=== PATIENT | female | born 1935 | race Caucasian/White ===

== ENCOUNTER → 2016-08-18 | Outpatient (CLI) | payer OTHER ==
[~2016-08-18] MED LIST: BAYER ASPIRIN325 M1 PO; CALCIUM + D 6001 TA1 PO; CALCIUM 600+D1 EACH PO; CLARITIN10 M3 PO; DISCONTINUED MED; FAMOTIDINE PO; GINKGO60 MG PO; HYDROCHLOROTHIA25 MG PO; IRON18 MG PO; IRON325 MG PO; LISINOPRIL20 MG PO; PRAVASTATIN SOD20 MG PO; TERBINAFINE (L250 MG PO; TRAMADOL HCL50 M1 PO; ZESTRIL40 MG PO; ZOCOR; [UNRECOGNIZED DRUG - REMARK]
--- NOTE | ~2016-08-18 | CT55 ---
[facility] A Service of [facility] RADIOLOGY TEXT RESULTS PATIENT: KARYN MILAN LOCATION: [facility] : 34 UNIT #: [id number] AGE: [address]: Garett Denis MD SEX: F ORDER DR: [id number] [facility] [address] [place], [place] [address] [id number] O MR#: [id number] Acc #: [id number] NAME: KARYN MILAN : 1935 SEX: F STUDY DATE/TIME: 08/18/2016 15:59 UNIT: [facility] ROOM: STUDY DESCRIPTION: CT Chest W Con Attending Physician: Garett Denis M.D. Referring Physician: Garett Denis M.D. Ordering Physician: Garett Denis M.D. Primary Care Physician: Garett Denis M.D. MEDICAL IMAGING REPORT This report is preliminary unless electronic signature is present EXAM CT chest with contrast INDICATIONS Unexplained 40 pounds weight loss over the past year. Observation for malignancy. PROCEDURE Contrast-enhanced CT of the chest. 100 mL of Isovue-370. The CT exam was performed with one or more of the following radiation dose reduction techniques: automatic exposure control, adjustment of mA and/or kV according to patient size, and iterative reconstruction. COMPARISON 02/25/2008 FINDINGS 5-mm ground-glass nodule inferior right upper lobe. No dense consolidation, pleural fluid or pneumothorax. No adenopathy. No aggressive appearing bone lesion. Refer to separately dictated abdomen and pelvis CT for findings below the diaphragm. The 5-mm inferior right upper lobe ground-glass nodule is unchanged from 2007 in keeping with benign finding. IMPRESSION 5-mm ground-glass nodule in the right upper lobe is stable since 2079 in keeping with a benign finding. There is no convincing evidence [facility] Service of [facility] RADIOLOGY TEXT RESULTS PATIENT: KARYN MILAN LOCATION: [facility] : 34 UNIT #: [id number] AGE: [address]: Garett Denis MD SEX: F ORDER DR: malignancy in the chest. No acute findings. Dictated by... Anthony Amin M.D. THIS IS AN ELECTRONICALLY VERIFIED REPORT Anthony Amin M.D. at 08/19/2016 3:55 PM SEJAL/david TD: 08/19/2016 07:47 JOB #: [id number] MEDICAL IMAGING REPORT Page 1 of 1 COPY
--- NOTE | ~2016-08-18 | CT2 ---
[facility] A Service of [facility] & [facility] RADIOLOGY TEXT RESULTS PATIENT: KARYN MILAN LOCATION: [facility] : 34 UNIT #: [id number] AGE: [address]: Garett Denis MD SEX: F ORDER DR: [id number] [facility] [address] [place], [place] [address] [id number] O MR#: [id number] Acc #: [id number] NAME: KARYN MILAN : 1935 SEX: F STUDY DATE/TIME: 08/18/2016 15:59 UNIT: [facility] ROOM: STUDY DESCRIPTION: CT Abd and Pelv W Cont Attending Physician: Garett Denis M.D. Referring Physician: Garett Denis M.D. Ordering Physician: Garett Denis M.D. Primary Care Physician: Garett Denis M.D. MEDICAL IMAGING REPORT This report is preliminary unless electronic signature is present EXAM CT abdomen and pelvis with contrast INDICATION Unexplained weight loss of 40 pounds over the past year. Intermittent constipation and generalized abdominal pain. PROCEDURE Contrast-enhanced CT of the abdomen and pelvis. 100 mL of Isovue-370. This CT examination was performed with one or more of the following radiation dose reduction techniques: automatic exposure control, adjustment of mA and/or kV according to patient size, and iterative reconstruction. COMPARISON 01/22/2015. FINDINGS Refer to the separately dictated chest CT for thoracic findings. The liver, spleen, kidneys, adrenal glands, pancreas show no acute abnormality. Previous cholecystectomy. There is a 1.8 cm right renal cyst. Large hiatal hernia with the majority of the stomach above the diaphragm. This is similar to the previous study. Uncomplicated sigmoid diverticula. Moderate colonic stool burden. Appendix is normal. There is a 1.8 cm fat-containing supraumbilical hernia. PELVIS WITH CONTRAST: Previous hysterectomy. No pelvic mass. No abdominal or pelvic adenopathy. There is heavy atherosclerotic calcification of the abdominal aorta including at the origins of the celiac, superior mesenteric and left renal arteries. These arteries remain patent. STS. [facility] A Service of [facility] & [facility] RADIOLOGY TEXT RESULTS PATIENT: KARYN MILAN LOCATION: [facility] : 34 UNIT #: [id number] AGE: [address]: Garett Denis MD SEX: F ORDER DR: There is significant increasing mixed sclerosis and lucency in the L5 vertebral body with a fairly large associated paravertebral soft tissue mass, greater in the left paravertebral soft tissues, where it measures up to approximately 2 cm in thickness. No other aggressive appearing bone lesion is seen. IMPRESSION 1. Abnormal appearance of the L5 vertebral body with abnormal paravertebral soft tissue, as detailed above. Malignant process is favored. Considerations include metastatic disease possibly lymphoma. Infectious or inflammatory process is a consideration but considered less likely. Lumbar spine MRI may allow further characterization. This process should be amendable to ultrasound-guided biopsy, if desired clinically. 2. No acute findings are seen in the abdomen or pelvis and there is no obvious primary malignancy elsewhere in the abdomen or pelvis. Dictated by... Anthony Amin M.D. THIS IS AN ELECTRONICALLY VERIFIED REPORT Anthony Amin M.D. at 08/19/2016 3:55 PM SEJAL/morris TD: 08/19/2016 08:46 JOB #: [id number] MEDICAL IMAGING REPORT Page 1 of 1 COPY
[2016-08-18 16:16] LABS: POC - CREATININE 0.88 mg/dL (0.44-1.03); POC - GFR >60.0 mL/min (>60)
== END | disposition home or self-care (01) ==
LOC: CCAT 13:23
PROVIDERS: Family Medicine
DX: R63.4 Abnormal weight loss (principal); R91.1 Solitary pulmonary nodule; R90.89 Other abnormal findings on diagnostic imaging of central nervous system
CPT/HCPCS: 71260; 74177; 82565; Q9967

== ENCOUNTER → 2016-08-22 | Outpatient (CLI) | payer OTHER ==
--- NOTE | ~2016-08-22 | MR112 ---
[facility] A Service of [facility] & [facility] RADIOLOGY TEXT RESULTS PATIENT: KARYN MILAN LOCATION: [facility] : 34 UNIT #: [id number] AGE: [address]: Garett Denis MD SEX: F ORDER DR: [id number] [facility] [address] [place], [place] [address] [id number] O MR#: [id number] Acc #: [id number] NAME: KARYN MILAN : 1935 SEX: F STUDY DATE/TIME: 08/22/2016 9:26 UNIT: [facility] ROOM: STUDY DESCRIPTION: MR Lumbar WWo Contrast Attending Physician: Garett Denis M.D. Ordering Physician: Garett Denis M.D. Primary Care Physician: Garett Denis M.D. MRI CENTER REPORT This report is preliminary unless electronic signature is present. EXAM Lumbar spine MRI with and without contrast. CLINICAL HISTORY Low back pain for 5 years worsening in severity. Difficulty walking due to back pain. Recent abnormal CT scan demonstrating a lytic process at L5. FINDINGS There is a grade I 4-5 anterolisthesis. Alignment is otherwise normal. 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 Signal extending into the pedicles bilaterally. There is also anterior epidural soft tissue, again circumferential paravertebral soft tissue, left side predominant, extending outside the vertebral body. No abnormal signal was seen at any other level and the distal cord and conus are normal in position and appearance. Postcontrast images shows strong enhancement throughout the vertebral body and adjacent soft tissue. No other areas of abnormal enhancement are seen. While there are modest degenerative changes at 1-2, 2-3, and 3-4; none show substantial canal or foraminal compromise. At 4-5, due to anterolisthesis and degenerative change, there is winrvusj-ae-ahjapo canal stenosis somewhat exacerbated by a malignant process as well, with mild right and moderate or agnhkqdm-mt-oovzsi left foraminal stenosis again primarily on a degenerative basis though probably exacerbated slightly by the malignant process. Behind the L5 vertebral body, there is at least moderate thecal sac stenosis due to extensive soft tissue. There is effective severe bilateral 5-1 foraminal stenosis. IMPRESSION [facility]. [facility] A Service of [facility] RADIOLOGY TEXT RESULTS PATIENT: KARYN MILAN LOCATION: [facility] : 34 UNIT #: [id number] AGE: [address]: Garett Denis MD SEX: F ORDER DR: 1. 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 Findings suggest metastatic disease. Primary bony tumor is less likely. Tissue sampling could be easily accomplished, but a bone scan and metastatic workup may be prudent prior to attempting tissue diagnosis at this level in case other areas of involvement are identified. 2. 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 See above for additional details. No other areas of involvement are seen here. Dictated by... Garrett Perez M.D. THIS IS AN ELECTRONICALLY VERIFIED REPORT Garrett Perez M.D. at 08/25/2016 10:31 AM SAM/pastora TD: 08/23/2016 14:16 JOB #: [id number] MRI CENTER REPORT Page 1 of 1 COPY
== END | disposition home or self-care (01) ==
LOC: CMRI 08:19
DX: R22.2 Localized swelling, mass and lump, trunk (principal); C70.1 Malignant neoplasm of spinal meninges; C49.6 Malignant neoplasm of connective and soft tissue of trunk, unspecified; M48.06 Spinal stenosis, lumbar region
CPT/HCPCS: 72158; A9577

== ENCOUNTER → 2016-08-29 | Outpatient (CLI) | payer OTHER ==
--- NOTE | ~2016-08-29 | NM8 ---
[facility] A Service of [facility] & [facility] RADIOLOGY TEXT RESULTS PATIENT: KARYN MILAN LOCATION: [facility] : 34 UNIT #: [id number] AGE: [address]: Garett Denis MD SEX: F ORDER DR: [id number] [place] [id number] [facility]. [place], [place] [address] [id number] O MR#: [id number] Acc #: [id number] NAME: KARYN MILAN. : 1935 SEX: F STUDY DATE/TIME: 08/29/2016 11:29 UNIT: [facility] ROOM: STUDY DESCRIPTION: VT Bone or Joint Whole Body Attending Physician: Garett Denis M.D. Referring Physician: Garett Denis M.D. Ordering Physician: Garett Denis M.D. Primary Care Physician: Garett Denis M.D. MEDICAL IMAGING REPORT This report is preliminary unless electronic signature is present EXAM Whole body bone scan HISTORY 81-year-old female low back pain, unintended weight loss, bilateral arm pain. History of bilateral knee replacements, right foot surgery. COMPARISON MRI of the lumbar spine 08/22/2016. CT abdomen and pelvis 08/18/2016. FINDINGS Whole-body and selected spot images was performed of the axial and appendicular skeleton following the intravenous administration of 28 mCi technetium 99m MDP. The examination demonstrates increased uptake in the lower lumbar spine most pronounced at L5 which corresponds to the abnormality noted on the patient's recent MRI of 08/22/2016. Findings concerning for metastatic disease or less likely a primary neoplasm. There is a sizeable extravertebral component to the lesion at L5 which again favors underlying neoplasm. Degenerative uptake seen within the feet bilaterally as well as increased uptake in the right sternoclavicular joint most likely degenerative as well as mild increased uptake in both shoulders which is felt to be degenerative in nature. No long bone activity, rib or skull activity is identified to suggest osseous metastatic disease. Normal bilateral renal activity and bladder activity identified. Degenerative uptake is also within the hands and wrists. IMPRESSION 1. Increased uptake within the lower lumbar spine at the L5 level which is felt to correspond to the aggressive bone lesion as noted on the patient's recent CT and MRI scan. Imaging features highly concerning for either a primary or metastatic bone tumor. Other considerations might include myeloma. No definite additional sites were identified to suggest an additional sites of involvement at this time. [facility] A Service of [facility] RADIOLOGY TEXT RESULTS PATIENT: KARYN MILAN LOCATION: [facility] : 34 UNIT #: [id number] AGE: [address]: Garett Denis MD SEX: F ORDER DR: 2. Degenerative uptake within the shoulders, right sternoclavicular joint, both hands and feet and feet and ankles. Dictated by... Cecelia Smith M.D. THIS IS AN ELECTRONICALLY VERIFIED REPORT Cecelia Smith M.D. at 09/02/2016 6:06 AM DEANA/kayla TD: 09/01/2016 15:39 JOB #: [id number] MEDICAL IMAGING REPORT Page 1 of 1 COPY
== END | disposition home or self-care (01) ==
LOC: CNUC 08:05
DX: R22.2 Localized swelling, mass and lump, trunk (principal); R63.4 Abnormal weight loss
CPT/HCPCS: 78306; A9503

== ENCOUNTER → 2016-09-08 | Outpatient (CLI) | payer OTHER ==
[2016-09-08 06:28] LABS: HEMATOCRIT 42.2 % (35.0-45.0); HEMOGLOBIN 13.6 gm/dL (12.0-16.0); MEAN CELL VOLUME 82.5 FL (83-96); MEAN CORPUSCULAR HEMOGLOBIN 26.6 PG (28-34); MEAN CORPUSCULAR HGB CONC 32.2 g/dL (30-36); MEAN PLATELET VOLUME 8.2 FL (6.5-11.5); RED BLOOD COUNT 5.12 X10e (3.90-5.30); RED CELL DISTRIBUTION WIDTH 16.3 % (11.0-15.5); WHITE BLOOD COUNT 3.6 X10e3 (4.0-10.5)
[2016-09-08 06:43] LABS: PARTIAL THROMBOPLASTIN TIME 26.8 SECONDS (23.5-31.3); PROTHROMBIN TIME (PATIENT) 10.4 SECONDS (9.6-11.5)
== END | disposition home or self-care (01) ==
LOC: CIVR 09-03 09:00
PROVIDERS: Family Medicine
DX: R22.2 Localized swelling, mass and lump, trunk (principal)
CPT/HCPCS: 36415; 85027; 85610; 85730

== ENCOUNTER → 2016-09-17 | Outpatient (CLI) | payer OTHER ==
--- NOTE | ~2016-09-17 | XA57 ---
[facility] A Service of [facility] RADIOLOGY TEXT RESULTS PATIENT: KARYN MILAN LOCATION: [facility] : 34 UNIT #: [id number] AGE: [address]: Garett Denis MD SEX: F ORDER DR: [id number] [id number] [place], [place] [address] [id number] O MR#: [id number] Acc #: [id number] NAME: KARYN MILAN : 1935 SEX: F STUDY DATE/TIME: 09/17/2016 8:08 UNIT: [facility] ROOM: STUDY DESCRIPTION: XA BX Perc Muscle Attending Physician: Garett Denis M.D. Referring Physician: Garett Denis M.D. Ordering Physician: Garett Denis M.D. Primary Care Physician: Garett Denis M.D. MEDICAL IMAGING REPORT This report is preliminary unless electronic signature is present PROCEDURE CT guided left paraspinal mass biopsy. INDICATIONS 81-year-old female with a left paraspinal mass concerning for malignancy. FINDINGS Please see CT GUIDE report for combined text results. Dictated by... Mark Smith M.D. THIS IS AN ELECTRONICALLY VERIFIED REPORT Mark Smith M.D. at 09/18/2016 7:15 AM KRISTIE/hira TD: 09/18/2016 00:31 JOB #: [id number] MEDICAL IMAGING REPORT Page 1 of 1 COPY
--- NOTE | ~2016-09-17 | CT134 ---
[facility] A Service of [facility] & [facility] RADIOLOGY TEXT RESULTS PATIENT: KARYN MILAN LOCATION: [facility] : 34 UNIT #: [id number] AGE: [address]: Garett Denis MD SEX: F ORDER DR: [id number] [place] [id number] [facility]. [place], [place] [address] [id number] O MR#: [id number] Acc #: [id number] NAME: KARYN MILAN : 1935 SEX: F STUDY DATE/TIME: 09/17/2016 8:08 UNIT: [facility] ROOM: STUDY DESCRIPTION: CT Guide Attending Physician: Garett Denis M.D. Referring Physician: Garett Denis M.D. Ordering Physician: Garett Denis M.D. Primary Care Physician: Garett Denis M.D. MEDICAL IMAGING REPORT This report is preliminary unless electronic signature is present PROCEDURE CT guided left paraspinal mass biopsy INDICATIONS 81-year-old female with a left paraspinal mass concerning for malignancy. Medications administered were 2 mg of Versed IV and 75 microns of fentanyl IV. Approximately 35 minutes of sedation time was monitored by appropriately credentialed radiology nursing staff. The risks, benefits and alternatives of the procedure were discussed with the patient and informed consent was obtained. In the procedure room, a time-out was performed confirming correct patient and procedure. All elements of maximum sterile-barrier technique utilized according to guidelines appropriate for the procedure. TECHNIQUE/FINDINGS Correlation is made with MRI of the lumbar spine from 08/22/2016. Patient is placed in the prone position on the CT scanner, preliminary CT scan was performed. This demonstrated the soft tissue mass adjacent to the L5 vertebral body on the left. The overlying skin was prepped and draped in usual sterile fashion and 1% lidocaine utilized to anesthetize the skin and underlying subcutaneous tissues. Next, under CT guidance, a 17-gauge guide needle was advanced into the periphery of the lesion. Through this access, 3 core biopsies were obtained. One was sent in [place] and the other two were sent in formalin. Needle was removed and a sterile dressing was applied. No immediate complications. This CT exam was performed with one or more of the following radiation dose reduction techniques: Automatic exposure control, adjustment of mA and/or kV according to patient size, and iterative reconstruction. IMPRESSION [facility]. [facility] A Service of [facility] & [facility] RADIOLOGY TEXT RESULTS PATIENT: KARYN MILAN LOCATION: [facility] #: [id number] : 34 UNIT #: [id number] AGE: [address]: Garett Denis MD SEX: F ORDER DR: Technically successful CT guided left paraspinous mass biopsy. Dictated by... Mark Smith M.D. THIS IS AN ELECTRONICALLY VERIFIED REPORT Mark Smith M.D. at 09/18/2016 7:16 AM KRISTIE/hira TD: 09/18/2016 00:29 JOB #: [id number] MEDICAL IMAGING REPORT Page 1 of 1 COPY
[2016-09-17 06:32] LABS: HEMATOCRIT 40.9 % (35.0-45.0); HEMOGLOBIN 13.2 gm/dL (12.0-16.0); MEAN CELL VOLUME 81.6 FL (83-96); MEAN CORPUSCULAR HEMOGLOBIN 26.3 PG (28-34); MEAN CORPUSCULAR HGB CONC 32.2 g/dL (30-36); RED BLOOD COUNT 5.01 X10e (3.90-5.30); RED CELL DISTRIBUTION WIDTH 15.7 % (11.0-15.5); WHITE BLOOD COUNT 4.1 X10e3 (4.0-10.5)
[2016-09-17 07:00] LABS: PARTIAL THROMBOPLASTIN TIME 27.3 SECONDS (23.5-31.3); PROTHROMBIN TIME (PATIENT) 10.1 SECONDS (9.6-11.5)
== END | disposition home or self-care (01) ==
LOC: CIVR 09-16 08:00
PROVIDERS: Family Medicine
DX: C82.39 Follicular lymphoma grade IIIa, extranodal and solid organ sites (principal); R93.7 Abnormal findings on diagnostic imaging of other parts of musculoskeletal system; I10 Essential (primary) hypertension; E78.5 Hyperlipidemia, unspecified; R63.4 Abnormal weight loss
CPT/HCPCS: 36415; 77012; 85027; 85610; 85730; 88305; J2250; J3010

== ENCOUNTER → 2016-10-03 | Outpatient (CLI) | payer OTHER ==
--- NOTE | ~2016-10-03 | MY29 ---
[facility] A Service of [facility] RADIOLOGY TEXT RESULTS PATIENT: KARYN MILAN LOCATION: [facility] : 34 UNIT #: [id number] AGE: [address]: Garett Denis MD SEX: F ORDER DR: [id number] [place] [id number] [facility]. [place], [place] [address] [id number] O MR#: [id number] Acc #: [id number] NAME: KARYN MILAN : 1935 SEX: F STUDY DATE/TIME: 10/03/2016 8:33 UNIT: [facility] ROOM: STUDY DESCRIPTION: MY KEVIN SCREENING W/ CAD BILAT Attending Physician: Garett Denis M.D. Referring Physician: Garett Denis M.D. Ordering Physician: Garett Denis M.D. Primary Care Physician: Garett Denis M.D. MEDICAL IMAGING REPORT This report is preliminary unless electronic signature is present EXAM Digital screening mammogram 10/03/2016 HISTORY 81-year-old woman. Positive family history, sister. Annual screen. COMPARISON Mammograms 10/26/2009, 09/10/2012. FINDINGS Digital imaging of each breast was completed utilizing a two-view examination of each breast in craniocaudal and mediolateral-oblique projections. Review and interpretation of digital mammograms include a second review in conjunction with FDA-approved CAD device. There is a normal parenchymal presentation bilaterally consistent with the patient's age. There are no breast masses imaged and no parenchymal asymmetry is visualized. There are no suspicious microcalcifications and I see no focal architectural disturbance. IMPRESSION Negative screening digital mammogram. One-year followup recommended. Patients over the age of 40 are entered into a reminder system with target due date for the next mammogram. A result letter will also be sent to the patient. BIRADS: 1 Negative Dictated by... Massimo Villa M.D. THIS IS AN ELECTRONICALLY VERIFIED REPORT [facility] A Service of [facility] RADIOLOGY TEXT RESULTS PATIENT: KARYN MILAN LOCATION: [facility] : 34 UNIT #: [id number] AGE: [address]: Garett Denis MD SEX: F ORDER DR: aMssimo Villa M.D. at 10/03/2016 10:47 AM PATRICIA/aruna TD: 10/03/2016 10:05 JOB #: [id number] MEDICAL IMAGING REPORT Page 1 of 1 COPY
== END | disposition home or self-care (01) ==
LOC: CWCC 08:00
DX: Z12.31 Encounter for screening mammogram for malignant neoplasm of breast (principal); Z80.3 Family history of malignant neoplasm of breast
CPT/HCPCS: G0202

== ENCOUNTER → 2016-11-27 | Outpatient (CLI) | payer OTHER ==
--- NOTE | ~2016-11-27 | CT120 ---
[facility] A Service of [facility] & [facility] RADIOLOGY TEXT RESULTS PATIENT: KARYN MILAN LOCATION: [facility] : 34 UNIT #: [id number] AGE: [address]: Domo Fox MD SEX: F ORDER DR: [id number] [facility] [address] [place], [place] [address] [id number] O MR#: [id number] Acc #: [id number] NAME: KARYN MILAN : 1935 SEX: F STUDY DATE/TIME: 11/27/2016 11:46 UNIT: [facility] ROOM: STUDY DESCRIPTION: CT Thoracic Spine W Cont Attending Physician: Domo Fox M.D. Referring Physician: Domo Fox M.D. Ordering Physician: Domo Fox M.D. Primary Care Physician: Garett Denis M.D. MEDICAL IMAGING REPORT This report is preliminary unless electronic signature is present EXAM Thoracic spine CT with contrast. HISTORY Upper back and neck pain for the past 2-3 weeks centered around T4 and T5. Previous history of lymphoma. TECHNIQUE Axial imaging was obtained through the thoracic spine with contrast. 100 mL of Isovue was used. Multiplanar reformatted images were also reviewed. This CT exam was performed with one or more of the following radiation dose reduction techniques: automatic exposure control, adjustment of mA and/or kV according to patient size, and iterative reconstruction. FINDINGS Images at bone window show exaggerated thoracic kyphosis with moderate multilevel thoracic degenerative disc disease. No osteoporotic or pathologic fractures are seen and no destructive bone lesions are noted. The thoracic spinal canal is widely patent. There is a mild upper thoracic dextroscoliosis and corresponding thoracolumbar levoscoliosis. There is a focus of increased PET tracer accumulation involving the transverse process of T6 on the right on a PET CT scan from 09/24/2016, but no destruction of the bone is appreciated on the CT scan. No paraspinous masses or nodes are identified except for densely calcified nodes in the mediastinum. There is a large hiatal hernia. IMPRESSION Thoracic degenerative disc disease with kyphoscoliosis. No destructive bone lesions or fractures are noted. No acute bony abnormalities are seen. Dictated by... Natalio Meneses M.D. [facility] A Service of [facility] RADIOLOGY TEXT RESULTS PATIENT: KARYN MILAN LOCATION: [facility] : 34 UNIT #: [id number] AGE: [address]: Dmoo Fox MD SEX: F ORDER DR: THIS IS AN ELECTRONICALLY VERIFIED REPORT Natalio Meneses M.D. at 11/29/2016 11:30 AM RASHEL/pastora TD: 11/29/2016 07:10 JOB #: [id number] MEDICAL IMAGING REPORT Page 1 of 1 COPY
--- NOTE | ~2016-11-27 | CT55 ---
[facility] A Service of [facility] RADIOLOGY TEXT RESULTS PATIENT: KARYN MILAN LOCATION: [facility] : 34 UNIT #: [id number] AGE: [address]: Domo Fox MD SEX: F ORDER DR: [id number] [facility]. [place], [place] [address] [id number] O MR#: [id number] Acc #: [id number] NAME: KARYN MILAN : 1935 SEX: F STUDY DATE/TIME: 11/27/2016 11:46 UNIT: [facility] ROOM: STUDY DESCRIPTION: CT Chest W Con Attending Physician: Domo Fox M.D. Referring Physician: Domo Fox M.D. Ordering Physician: Domo Fox M.D. Primary Care Physician: Garett Denis M.D. MEDICAL IMAGING REPORT This report is preliminary unless electronic signature is present EXAM CT chest with contrast INDICATIONS Restaging lymphoma. Patient reports upper back and neck pain for the past 2-3 weeks. Patient reports last radiation treatment September of 2016. PROCEDURE Contrast-enhanced CT of the chest. This CT exam was performed with one or more of the following radiation dose reduction techniques: automatic control, adjustment of mA and/or kV according to patient size, and iterative reconstruction. COMPARISON Comparison is 08/18/2016 FINDINGS No dense consolidation or suspicious pulmonary nodule. There is a 4-5 mm ground-glass nodule in the right middle lobe that is unchanged and has been stable since 2007. There is no adenopathy in the chest. There is a moderately large hiatal hernia. No acute findings in the included upper abdomen. No aggressive appearing bone lesion. Kyphotic curvature in the thoracic spine. No evidence for compression deformity. IMPRESSION 1. No suspicious pulmonary nodules. No adenopathy in the chest. 2. Kyphotic curvature of the thoracic spine but no acute compression deformity Dictated by... Anthony Amin M.D. THIS IS AN ELECTRONICALLY VERIFIED REPORT [facility] A Service of [facility] & [facility] RADIOLOGY TEXT RESULTS PATIENT: KARYN MILAN LOCATION: [facility] : 34 UNIT #: [id number] AGE: [address]: Domo Fox MD SEX: F ORDER DR: Anthony Amin M.D. at 12/01/2016 11:08 AM SEJAL/ella TD: 11/27/2016 19:32 JOB #: [id number] MEDICAL IMAGING REPORT Page 1 of 1 COPY
[2016-11-27 14:56] LABS: POC - CREATININE 0.86 mg/dL (0.44-1.03); POC - GFR >60.0 mL/min (>60)
== END | disposition home or self-care (01) ==
LOC: CCAT 09:59
PROVIDERS: Radiology Radiation Oncology
DX: C85.90 Non-Hodgkin lymphoma, unspecified, unspecified site (principal); M51.34 Other intervertebral disc degeneration, thoracic region; M41.84 Other forms of scoliosis, thoracic region
CPT/HCPCS: 71260; 72129; 82565; Q9967